=== PATIENT | female | born 1960 | race Caucasian/White ===

== ENCOUNTER 2020-07-05 14:29 | Emergency (ER) | payer MEDICARE ==
[~2020-07-05] VITALS: Ht 160 cm; Wt 80.5 kg
[2020-07-05] MEDS ORDERED: CYMBALTA60 MG PO (15:39)
[2020-07-05] MEDS ORDERED: ALL DAY10 MG PO (15:40)
[2020-07-05] MEDS ORDERED: VITAMIN E400 UNIT PO (15:41)
[2020-07-05] MEDS ORDERED: NYSTAT/TRIA1 EX (15:41)
[2020-07-05] MEDS ORDERED: PRILOSEC20 MG/CAP PO (15:41)
[2020-07-05 16:36] VITALS: BP 128/68
[2020-07-05] MEDS ORDERED: TRAMADOL HYDROC50 MG PO (16:50)
== END 2020-07-05 17:06 | disposition home or self-care (01) ==
LOC: ED 14:29
DX: S42.021A Displaced fracture of shaft of right clavicle, initial encounter for closed fracture (principal); S80.211A Abrasion, right knee, initial encounter; V28.0XXA Motorcycle driver injured in noncollision transport accident in nontraffic accident, initial encounter; Y92.009 Unspecified place in unspecified non-institutional (private) residence as the place of occurrence of the external cause